=== PATIENT | male | born 1960 | race Caucasian/White ===

== ENCOUNTER 2019-10-03 17:46 | Inpatient (IN) | payer BC, MEDICAID, OTHER ==
[~2019-10-03] VITALS: Ht 180.3 cm; Wt 75.4 kg
[~2019-10-03 17:46] MED LIST: [UNRECOGNIZED DRUG - SUPPLY]
[2019-10-03] MEDS ORDERED: SODIUM CHLORIDE 0.9% 1,000 ML IV ONE (18:56)
[2019-10-03] MEDS ORDERED: CLINDAMYCIN 600MG IV 50 ML IV ONE (19:00)
[2019-10-03 20:28] LABS: Basophils # (auto) 0 10 ^3/uL (0-0.2); Basophils % (auto) 0.5 % (0.0-2.0); Eosinophils # (auto) 0.3 10 ^3/uL (0-0.8); Eosinophils % (auto) 3.8 % (0.0-7.0); Hematocrit 40.2 % (41.0-53.0); Hemoglobin 13.4 g/dL (13.5-17.5); Lymphocytes # (auto) 1.8 10 ^3/uL (0.4-5.4); Lymphocytes % (auto) 20.2 % (10.0-50.0); Mean Corpuscular Hemoglobin 30.9 pg (28.0-32.0); Mean Corpuscular Hgb Conc. 33.3 g/dL (32.0-36.0); Mean Corpuscular Volume 92.5 fL (80.0-100.0); Monocytes # (auto) 0.6 10 ^3/uL (0-1.3); Monocytes % (auto) 6.9 % (0.0-12.0); Neutrophils # (auto) 6.1 10 ^3/uL (1.6-8.6); Neutrophils % (auto) 68.6 % (37.0-80.0); Platelet Count (auto) 175 10^3/uL (140-450); Red Blood Cells 4.35 10^6/uL (4.5-5.90); Red Cell Distribution Width 13.5 % (11.8-14.3); White Blood Cell 8.8 10^3/uL (4.4-10.8)
[2019-10-03 20:45] LABS: Albumin 3.5 g/dL (3.4-5.0); Calcium 8.9 mg/dL (8.5-10.1); Potassium 4.6 mmol/L (3.5-5.1)
[2019-10-03 20:49] LABS: BUN/Creatinine Ratio 14.5; Bilirubin, Total 0.4 mg/dL (0.2-1.0); Total Protein 7.7 g/dL (6.4-8.2)
[2019-10-03] MEDS ORDERED: ONDANSETRON HCL 4 MG/2 ML VIAL IV PRN (23:15)
[2019-10-03] MEDS ORDERED: ACETAMINOPHEN 325 MG TAB PO PRN (23:15)
[2019-10-03] MEDS ORDERED: MORPHINE SULF INJ 2 MG/ML SYRINGE 1ML IV PRN (23:15)
[2019-10-03] MEDS ORDERED: NITROGLYCERIN 0.4 MG SL TAB SL PRN (23:15)
[2019-10-03] MEDS ORDERED: DEXTROSE (50%) 50ML SYRG IV PRN (23:15)
[2019-10-03] MEDS: SODIUM CHLORIDE 0.9% 1,000 ML IV SCH (23:32)
--- NOTE | 2019-10-04 00:15 | NUR ---
MS admit from ER [facility] admitted to tele/MS after NO SBAR WAS received. Patient oriented to JESSICA ware RN, unit, room, bed, and unit policies regarding patient care and visiting hours. Patient weighed by bedscale and encouraged to call if they need something. All questions and concerns addressed, patient verbalized understanding.
[2019-10-04 00:30] VITALS: BP 113/68
[2019-10-04] MEDS: ACCU-CHEK COMFORT CURVE STRIP VI SCH ×4 (00:46→18:02)
[2019-10-04] MEDS: InsuLIN REG 1unit/0.01ml Soln (100units/ml) SC SCH ×4 (00:47→18:01)
[2019-10-04 05:00] VITALS: BP 111/72
[2019-10-04] MEDS: CLINDAMYCIN 900MG IV 50 ML IV SCH ×2 (05:57→13:26)
[2019-10-04 06:02] LABS: Basophils # (auto) 0 10 ^3/uL (0-0.2); Basophils % (auto) 0.4 % (0.0-2.0); Eosinophils # (auto) 0.3 10 ^3/uL (0-0.8); Eosinophils % (auto) 4.7 % (0.0-7.0); Hematocrit 38.1 % (41.0-53.0); Lymphocytes # (auto) 1.9 10 ^3/uL (0.4-5.4); Lymphocytes % (auto) 26.4 % (10.0-50.0); Mean Corpuscular Hemoglobin 31.3 pg (28.0-32.0); Mean Corpuscular Volume 92.1 fL (80.0-100.0); Monocytes # (auto) 0.6 10 ^3/uL (0-1.3); Monocytes % (auto) 7.8 % (0.0-12.0); Neutrophils # (auto) 4.5 10 ^3/uL (1.6-8.6); Neutrophils % (auto) 60.7 % (37.0-80.0); Nucleated Red Blood Cells % 0.1 %; Platelet Count (auto) 159 10^3/uL (140-450); Red Blood Cells 4.14 10^6/uL (4.5-5.90); Red Cell Distribution Width 13.7 % (11.8-14.3); White Blood Cell 7.4 10^3/uL (4.4-10.8)
[2019-10-04 06:25] LABS: Calcium 7.8 mg/dL (8.5-10.1); Potassium 3.7 mmol/L (3.5-5.1)
[2019-10-04 06:35] LABS: BUN/Creatinine Ratio 16.5; CRP High Sensitivity 2.65 mg/dL (< 0.3)
[2019-10-04] MEDS ORDERED: ACCU-CHEK COMFORT CURVE STRIP VI SCH (07:00)
[2019-10-04 08:00] VITALS: BP 114/69
--- NOTE | 2019-10-04 08:30 | NUR ---
Patient signed an AMA to go down/smoke.
[2019-10-04] MEDS ORDERED: LORazepam 2MG/ML-1ML VIAL IV PRN (09:00)
--- NOTE | 2019-10-04 09:50 | NUR ---
ss consult Per ss consult advanced directive information. Ac B[facility]XTON has provided patient with advanced directive. Addendum: 10/04/19 at 0951 by Niurka SALDANA Amended: Links added.
[2019-10-04] MEDS ORDERED: levoFLOXacin 500MG 100 ML IV SCH (10:00)
[2019-10-04] MEDS ORDERED: ENOXAPARIN SOD 40 MG/0.4 ML SYRINGE SC SCH (10:00)
[2019-10-04] MEDS: SODIUM CHLORIDE 0.9% 1,000 ML IV SCH (10:16)
[2019-10-04] MEDS ORDERED: HYDROcodone-ACET 5/325MG TAB PO PRN (12:45)
[2019-10-04] MEDS ORDERED: CLIN300C8 PO (15:36)
[2019-10-04] MEDS ORDERED: LEVO500T21 PO (15:36)
[2019-10-04] MEDS ORDERED: METF-370 PO (15:41)
[2019-10-04] MEDS ORDERED: GLIP5TAB12 PO (15:41)
--- NOTE | 2019-10-04 15:48 | NUR ---
Left a message to Cindy Cabrera regarding result of right foot MRI and right lower extremity arterial study, Dr. Cunningham of podiatry is already aware of the results and will not do any surgical intervention and suggested that patient may be discharged home with antibiotics. Awaiting call from Dr. Jarrell. Will continue care.
--- NOTE | 2019-10-04 16:54 | NUR ---
Assessment Patient is a 59-year-old male who is alert and oriented. Prior to admission patient lived home with his and functioned independently. Per patient he can care for his own ADLs. Per patient he does not have any medical equipment. Per patient he will return home to his prior living arrangements post discharge and his will transport him home. Advised patient there is a social service consult for home health safety evaluation. Informed patient clinical information will be faxed to [facility]. Informed patient he has the right to speak to a psychiatric social worker supervisor regarding all care. Informed patient he has the right to participate in all discharge planning. Patient verbalized understanding and agreed to discharge plan. Faxed clinical information to [facility] and [facility]. Per Lisandra with [facility] patient has been accepted and service to start within 24-48hrs upon d/c day. Obtain authorization from [facility] [id number]. Addendum: 10/04/19 at 1704 by SEBLE SALDANA Amended: Links added.
[2019-10-04 17:00] VITALS: BP 101/64
--- NOTE | 2019-10-04 18:10 | NUR ---
Orders received from Dr. Cindy Jarrell, patient is for discharge today. Patient made aware, is going to pick him up. Will process the discharge papers. Continue care.
[2019-10-04 18:45] VITALS: BP 101/64
--- NOTE | 2019-10-04 19:15 | NUR ---
Discharge instructions given as ordered. Encourage to follow up with PMD Ritika Gustafson in 3-[address] Cunningham in 2-3 weeks as instructed. Patient advised to drop by [facility] to get new prescriptions sent electronically by Dr. Cindy Jarrell. All questions and concerns addressed. Patient verbalized understanding. Medication reconciliation form completed and copy given to patient. Home medications held in Pharmacy returned to patient, and needed vaccines given. IV removed with catheter intact, pressure dressing applied. Patient ambulated with all personal belongings, accompanied by staff and family member. No distress noted at time of departure.
== END 2019-10-04 19:15 | disposition home health service (06) | DRG 383 ==
LOC: ER 17:46 → TELE-CENTR 23:57 → WEST WING 23:58
PROVIDERS: ADMIT Hospitalist; ATTEND Hospitalist
DX: L03.115 Cellulitis of right lower limb (principal); E11.65 Type 2 diabetes mellitus with hyperglycemia; I11.0 Hypertensive heart disease with heart failure; I25.10 Atherosclerotic heart disease of native coronary artery without angina pectoris; I50.9 Heart failure, unspecified; Z82.49 Family history of ischemic heart disease and other diseases of the circulatory system; Z83.3 Family history of diabetes mellitus; Z87.11 Personal history of peptic ulcer disease
CPT/HCPCS: 36415; 73630; 73700; 73718; 80048; 80053; 82962; 83036; 85025; 85652; 86141; 87040; 93926; 96365; G0378; J1815; J1956; J3490

== ENCOUNTER 2019-10-26 10:35 | Emergency (ER) | payer MEDICAID ==
[~2019-10-26] VITALS: Ht 180.3 cm; Wt 83.9 kg
[~2019-10-26 10:35] MED LIST changes: +CLIN300C8 PO; +GLIP5TAB12 PO; +LEVO500T21 PO; +METF-370 PO; -[UNRECOGNIZED DRUG - SUPPLY]
[2019-10-26 10:45] VITALS: BP 122/74
== END 2019-10-26 11:33 | disposition home or self-care (01) ==
LOC: ER 10:35
DX: Z48.00 Encounter for change or removal of nonsurgical wound dressing (principal)

== ENCOUNTER 2019-11-02 16:08 | Inpatient (IN) | payer MEDICAID ==
[~2019-11-02] VITALS: Ht 182.9 cm; Wt 73.3 kg
[2019-11-02 19:13] LABS: Basophils # (auto) 0 10 ^3/uL (0-0.2); Basophils % (auto) 0.5 % (0.0-2.0); Eosinophils # (auto) 0.4 10 ^3/uL (0-0.8); Eosinophils % (auto) 5.2 % (0.0-7.0); Hematocrit 40.7 % (41.0-53.0); Lymphocytes # (auto) 1.8 10 ^3/uL (0.4-5.4); Lymphocytes % (auto) 23.8 % (10.0-50.0); Mean Corpuscular Hemoglobin 31.4 pg (28.0-32.0); Mean Corpuscular Hgb Conc. 34.4 g/dL (32.0-36.0); Mean Corpuscular Volume 91.3 fL (80.0-100.0); Monocytes # (auto) 0.5 10 ^3/uL (0-1.3); Monocytes % (auto) 6.6 % (0.0-12.0); Neutrophils # (auto) 4.8 10 ^3/uL (1.6-8.6); Neutrophils % (auto) 63.9 % (37.0-80.0); Nucleated Red Blood Cells % 0.1 %; Platelet Count (auto) 163 10^3/uL (140-450); Red Blood Cells 4.46 10^6/uL (4.5-5.90); Red Cell Distribution Width 13.1 % (11.8-14.3); White Blood Cell 7.6 10^3/uL (4.4-10.8)
[2019-11-02 20:04] LABS: Potassium 4.2 mmol/L (3.5-5.1)
[2019-11-02 20:10] LABS: Albumin 3.7 g/dL (3.4-5.0); BUN/Creatinine Ratio 17.1; Bilirubin, Total 0.7 mg/dL (0.2-1.0)
[2019-11-02 20:16] LABS: Magnesium 1.9 mg/dL (1.6-2.6)
[2019-11-02] MEDS ORDERED: SODIUM CHLORIDE 0.9% 1,000 ML IVB ONE (21:47)
[2019-11-02] MEDS ORDERED: InsuLIN REG 1unit/0.01ml Soln (100units/ml) IV ONE (22:00)
[2019-11-03] MEDS ORDERED: ACETAMINOPHEN 325 MG TAB PO PRN (03:00)
[2019-11-03] MEDS ORDERED: MORPHINE SULF INJ 2 MG/ML SYRINGE 1ML IV PRN (03:00)
[2019-11-03] MEDS ORDERED: ONDANSETRON HCL 4 MG/2 ML VIAL IV PRN (03:00)
[2019-11-03] MEDS ORDERED: NITROGLYCERIN 0.4 MG SL TAB SL PRN (03:00)
[2019-11-03] MEDS ORDERED: MORPHINE SULFATE 4 MG/ML SYR/VIAL IV PRN (03:00)
[2019-11-03] MEDS ORDERED: DEXTROSE (50%) 50ML SYRG IV PRN (03:00)
[2019-11-03 03:30] LABS: Basophils # (auto) 0 10 ^3/uL (0-0.2); Basophils % (auto) 0.3 % (0.0-2.0); Eosinophils # (auto) 0.4 10 ^3/uL (0-0.8); Eosinophils % (auto) 4.3 % (0.0-7.0); Hematocrit 41.7 % (41.0-53.0); Hemoglobin 14.3 g/dL (13.5-17.5); Lymphocytes # (auto) 2.2 10 ^3/uL (0.4-5.4); Lymphocytes % (auto) 24.4 % (10.0-50.0); Mean Corpuscular Hemoglobin 31.5 pg (28.0-32.0); Mean Corpuscular Hgb Conc. 34.3 g/dL (32.0-36.0); Mean Corpuscular Volume 91.9 fL (80.0-100.0); Monocytes # (auto) 0.7 10 ^3/uL (0-1.3); Monocytes % (auto) 7.3 % (0.0-12.0); Neutrophils # (auto) 5.7 10 ^3/uL (1.6-8.6); Neutrophils % (auto) 63.7 % (37.0-80.0); Platelet Count (auto) 170 10^3/uL (140-450); Red Blood Cells 4.54 10^6/uL (4.5-5.90); Red Cell Distribution Width 13.1 % (11.8-14.3); White Blood Cell 8.9 10^3/uL (4.4-10.8)
[2019-11-03] MEDS: SODIUM CHLORIDE 0.9% 1,000 ML IV SCH ×3 (03:33→23:15)
[2019-11-03 04:17] LABS: Albumin 3.7 g/dL (3.4-5.0); Calcium 9.2 mg/dL (8.5-10.1); Magnesium 2.4 mg/dL (1.6-2.6); Potassium 4.6 mmol/L (3.5-5.1)
[2019-11-03 04:20] LABS: BUN/Creatinine Ratio 17.9; Bilirubin, Total 0.5 mg/dL (0.2-1.0); Phosphorus 2.8 mg/dL (2.5-4.90); Total Protein 7.7 g/dL (6.4-8.2)
--- NOTE | 2019-11-03 05:05 | NUR ---
Telemetry admit from [facility] admitted to Telemetry unit; no SBAR received. Patient oriented by TIERRA DOUGHERTY, primary RN, to unit, room, bed, and unit policies regarding patient care and visiting hours and smoking. Patient signed AMA to be able to go smoke. Patient now on continuous telemetry monitoring, tele box #51 and telemetry reading on arrival to unit is SR 71. Patient on room air, weighed by bedscale and encouraged to call if he needs something. All questions and concerns addressed, patient verbalized understanding stating he will be going home later this a.m. Bed in low position. Call light within reach.
[2019-11-03] MEDS: InsuLIN REG 1unit/0.01ml Soln (100units/ml) SC SCH ×4 (05:51→22:00)
[2019-11-03] MEDS: ACCU-CHEK COMFORT CURVE STRIP VI SCH ×4 (05:52→22:00)
[2019-11-03 06:00] VITALS: BP 110/72
[2019-11-03 06:01] VITALS: BP 110/72
[2019-11-03 08:48] VITALS: BP 111/70
[2019-11-03 12:16] LABS: INR 1.04 (0.9-1.15); Partial Thromboplastin Time 25.3 sec (23.0-31.2)
[2019-11-03] MEDS: HEPARIN SODIUM (PORCINE) 5000 UNITS/ML 1ML VIAL SC SCH ×2 (12:24→23:00)
[2019-11-03 13:00] VITALS: BP 107/68
[2019-11-03 17:00] VITALS: BP 93/47
[2019-11-03 22:00] VITALS: BP 120/73
[2019-11-03] MEDS ORDERED: INSULIN LANTUS (GLARGINE) 1 /0.01ml (100units/ml) SC SCH (22:00)
[2019-11-04 05:00] VITALS: BP 107/63
[2019-11-04 06:40] LABS: Potassium 4.2 mmol/L (3.5-5.1)
[2019-11-04 06:50] LABS: Albumin 3.1 g/dL (3.4-5.0); BUN/Creatinine Ratio 15.6; Bilirubin, Total 0.8 mg/dL (0.2-1.0); Calcium 8.5 mg/dL (8.5-10.1); Total Protein 7.2 g/dL (6.4-8.2)
[2019-11-04] MEDS: InsuLIN REG 1unit/0.01ml Soln (100units/ml) SC SCH ×2 (07:00→12:13)
[2019-11-04] MEDS: ACCU-CHEK COMFORT CURVE STRIP VI SCH ×2 (07:00→12:12)
--- NOTE | 2019-11-04 07:03 | NUR ---
Opening Shift Note Assumed care of patient, awake and alert. No S/S of distress/SOB or pain. Instructed on POC and to call for assist PRN, will continue to monitor for changes Q1hr and PRN. Bed locked in the lowest position, side rails up x 2, HOB elevated at least 30 degrees and call light is within reach.
[2019-11-04 08:00] VITALS: BP 104/69
[2019-11-04 09:00] VITALS: BP 104/69
[2019-11-04] MEDS: SODIUM CHLORIDE 0.9% 1,000 ML IV SCH (09:15)
[2019-11-04 13:00] VITALS: BP 101/65
--- NOTE | 2019-11-04 16:20 | NUR ---
Discharge instructions given as ordered. Encourage to follow up with PMD as instructed. All questions and concerns addressed. Patient verbalized understanding. Home medications held in Pharmacy returned to patient, and needed vaccines given. IV removed with catheter intact, pressure dressing applied. Telemetry unit returned to ICU. Patient ambulated independently to family member's vehicle. No distress noted at time of departure.
== END 2019-11-04 16:20 | disposition home or self-care (01) | DRG 420 ==
LOC: ER 16:08 → TELE 16:09 → TELE-WESTW 11-03 05:05
PROVIDERS: ADMIT Internal Medicine; ATTEND Internal Medicine
DX: E11.65 Type 2 diabetes mellitus with hyperglycemia (principal); N17.0 Acute kidney failure with tubular necrosis; I10 Essential (primary) hypertension; F17.210 Nicotine dependence, cigarettes, uncomplicated; R74.0 Nonspecific elevation of levels of transaminase and lactic acid dehydrogenase [LDH]; Z87.11 Personal history of peptic ulcer disease; Z79.4 Long term (current) use of insulin; Z90.49 Acquired absence of other specified parts of digestive tract; Z98.61 Coronary angioplasty status
CPT/HCPCS: 36415; 71045; 80053; 82962; 83036; 83690; 83735; 83880; 84100; 84484; 85025; 85610; 85730; G0378; J1815

== ENCOUNTER 2023-09-21 17:35 | Emergency (ER) | payer MEDICAID ==
[~2023-09-21] VITALS: Ht 182.9 cm; Wt 61.9 kg
[2023-09-21 18:25] VITALS: BP 99/66; PULSE 99; RESP 18; O2SAT 98
[2023-09-21] MEDS ORDERED: HYDROcodone-ACET 10/325MG TAB PO ONE (19:15)
[2023-09-21 19:21] LABS: Basophils # (auto) 0 10 ^3/uL (0-0.2); Basophils % (auto) 0.4 % (0.0-2.0); Eosinophils # (auto) 0.2 10 ^3/uL (0-0.8); Eosinophils % (auto) 2.1 % (0.0-7.0); Hematocrit 39.6 % (41.0-53.0); Hemoglobin 13.3 g/dL (13.5-17.5); Lymphocytes # (auto) 1.4 10 ^3/uL (0.4-5.4); Lymphocytes % (auto) 17.7 % (10.0-50.0); Mean Corpuscular Hemoglobin 30.6 pg (28.0-32.0); Mean Corpuscular Hgb Conc. 33.6 g/dL (32.0-36.0); Mean Corpuscular Volume 91.1 fL (80.0-100.0); Monocytes # (auto) 0.5 10 ^3/uL (0-1.3); Monocytes % (auto) 6.5 % (0.0-12.0); Neutrophils # (auto) 5.6 10 ^3/uL (1.6-8.6); Neutrophils % (auto) 73.3 % (37.0-80.0); Red Blood Cells 4.35 10^6/uL (4.5-5.90); Red Cell Distribution Width 12.9 % (11.8-14.3); White Blood Cell 7.6 10^3/uL (4.4-10.8)
[2023-09-21 19:39] LABS: Alanine Aminotransferase 68 U/L (7-40); Albumin 4.1 g/dL (3.2-4.8); Alkaline Phosphatase 90 U/L (46-116); Anion Gap 5 (5-15); Aspartate Aminotransferase 51 U/L (13-40); BUN/Creatinine Ratio 14.5 (10.0-20.0); Blood Urea Nitrogen 22 mg/dL (9-23); Calcium 9.9 mg/dL (8.7-10.4); Carbon Dioxide 30 mmol/L (20-30); Chloride 89 mmol/L (98-107); Potassium 4.7 mmol/L (3.5-5.1); Sodium 124 mmol/L (136-145)
[2023-09-21 19:40] LABS: Bilirubin, Total 1.1 mg/dL (0.2-1.0); Total Protein 7.8 g/dL (5.7-8.2)
[2023-09-21 19:54] LABS: Glucose 644 mg/dL (74-106)
[2023-09-21] MEDS ORDERED: InsuLIN REG 1unit/0.01ml Soln (100units/ml) IV ONE (21:30)
[2023-09-21] MEDS ORDERED: SODIUM CHLORIDE 0.9% 1,000 ML IV ONE (21:30)
== END 2023-09-21 21:52 | disposition left against medical advice (07) ==
LOC: ER 17:35
DX: S83.8X2A Sprain of other specified parts of left knee, initial encounter (principal); E11.65 Type 2 diabetes mellitus with hyperglycemia; I10 Essential (primary) hypertension; F17.210 Nicotine dependence, cigarettes, uncomplicated; Z98.890 Other specified postprocedural states; W01.0XXA Fall on same level from slipping, tripping and stumbling without subsequent striking against object, initial encounter; Y93.89 Activity, other specified; Y92.89 Other specified places as the place of occurrence of the external cause; Y99.8 Other external cause status
CPT/HCPCS: 36415; 73562; 80053; 82010; 82962; 83605; 85025

== ENCOUNTER 2024-03-30 16:45 | Inpatient (IN) | payer MEDICAID ==
[~2024-03-30] VITALS: Ht 180.3 cm; Wt 57.5 kg
[2024-03-30] MEDS ORDERED: INSULIN LISPRO (HUMAN) 100 UNITS/ML ML SC ONE (17:00)
[2024-03-30 17:10] VITALS: PULSE 102; RESP 16; O2SAT 97
[2024-03-30] MEDS: SODIUM CHLORIDE 0.9% 2,000 ML IV ONE (17:26)
--- NOTE | 2024-03-30 17:31 | DVH ---
CHEST RADIOGRAPH Indication: Shortness of breath Technique: Single frontal view of the chest was obtained COMPARISON: CHEST PORTABLE on DOS: 11/03/19 FINDINGS: Lines and Tubes: None Lungs: Clear Pleura: No effusion. No pneumothorax. Cardiomediastinal contours: Unremarkable Bones: Unremarkable IMPRESSION: No acute disease.
[2024-03-30 17:59] LABS: Base Excess 3.3 mmol/L (-2.0-3.0)
[2024-03-30] MEDS: InsuLIN REG 1unit/0.01ml Soln (100units/ml) IV ONE (18:00)
[2024-03-30 18:48] LABS: Basophils # (auto) 0 10 ^3/uL (0-0.2); Basophils % (auto) 0.3 % (0.0-2.0); Eosinophils # (auto) 0.1 10 ^3/uL (0-0.8); Hematocrit 39.7 % (41.0-53.0); Hemoglobin 12.8 g/dL (13.5-17.5); Lymphocytes # (auto) 1.8 10 ^3/uL (0.4-5.4); Lymphocytes % (auto) 15.8 % (10.0-50.0); Mean Corpuscular Hemoglobin 28.6 pg (28.0-32.0); Mean Corpuscular Hgb Conc. 32.1 g/dL (32.0-36.0); Mean Corpuscular Volume 88.9 fL (80.0-100.0); Monocytes # (auto) 0.7 10 ^3/uL (0-1.3); Monocytes % (auto) 6.2 % (0.0-12.0); Neutrophils # (auto) 8.8 10 ^3/uL (1.6-8.6); Neutrophils % (auto) 76.7 % (37.0-80.0); Platelet Count (auto) 318 10^3/uL (140-450); Red Blood Cells 4.47 10^6/uL (4.5-5.90); Red Cell Distribution Width 13.2 % (11.8-14.3); White Blood Cell 11.5 10^3/uL (4.4-10.8)
[2024-03-30 18:55] LABS: Anion Gap 5 (5-15); Potassium 4.6 mmol/L (3.5-5.1)
[2024-03-30 18:56] LABS: Calcium 10.2 mg/dL (8.7-10.4)
[2024-03-30 19:01] LABS: BUN/Creatinine Ratio 19.5 (10.0-20.0)
[2024-03-30 19:08] LABS: Blood Urea Nitrogen 26 mg/dL (9-23); Carbon Dioxide 34 mmol/L (20-31); Chloride 88 mmol/L (98-107); Sodium 127 mmol/L (136-145)
[2024-03-30 19:11] LABS: Glucose 565 mg/dL (74-106)
--- NOTE | 2024-03-30 20:49 | ED.PDOC ---
History of present illness HPI Comments This patient is a 63-year-old noncompliant diabetic who arrives the ED today after being referred from an urgent care facility due to elevated blood sugar. Patient states that at the clinic his blood sugar was "hi". Patient states he originally went to the facility due to blood sugar concerns and generalized weakness for the past two days. Patient states intermittent nausea. Patient denies any fever. Patient has a mild elevated temperature and a mild tachycardia at arrival. Chief Complaint: Hyperglycemia Time Seen by MD: 16:47 Primary Care Provider: pt does not know History of present illness: Nurses Notes Allergies: Coded Allergies: NO KNOWN ALLERGIES (Unverified , 01/28/10) Home Meds No Active Prescriptions or Reported Meds Information Source: Patient Mode of Arrival: Wheelchair Timing: Days Duration: Since onset Prehospital treatment: None [place]: None History of: Diabetes, Insulin use Past Medical History PAST MEDICAL HISTORY: DM, HTN, PUD Surgical History: Appendectomy, PTCA Family History Family History: No family hx of HTN, Family hx of DM, Family hx of HTN Social History Smoker: Cigarettes, Less Than 1 Pack/Day Alcohol: Rarely Drugs: Denies Drug Use Lives In: Home Constitutional: reports: fatigue, weakness; denies: chills, diaphoresis, fever, malaise, sweats, others EENTM: denies: blurred vision, double vision, ear bleeding, ear discharge, ear drainage, ear pain, ear ringing, eye pain, eye redness, hearing loss, mouth pain, mouth swelling, nasal discharge, nose bleeding, nose congestion, nose pain , photophobia, tearing, throat pain, throat swelling, voice changes, others Respiratory: denies: cough, hemoptysis, orthopnea, SOB at rest, shortness of breath, SOB with excertion, stridor, wheezing, others Cardiovascular: denies: chest pain, dizzy spells, diaphoresis, Dyspnea on exertion, edema, irregular heart beat, left arm pain, lightheadedness, palpitations, PND, syncope, others Gastrointestinal: denies: abdomen distended, abdominal pain, blood streaked bowels, constipated, diarrhea, dysphagia, difficulty swallowing, hematemesis, melena, nausea, poor appetite, poor fluid intake, rectal bleeding, rectal pain, vomiting, others Genitourinary: denies: burning, dysuria, flank pain, frequency, hematuria, incontinence, penile discharge, penile sore, pain, testicle pain, testicle swelling, urgency, others Neurological: denies: dizziness, fainting, headache, left sided numbness, left sided weakness, numbness, paresthesia, pre-existing deficit, right sided numbness, right sided weakness, seizure, speech problems, tingling, tremors, weakness, others Musculoskeletal: denies: back pain, gout, joint pain, joint swelling, muscle pain, muscle stiffness, neck pain, others Integumetry: denies: bruises, change in color, change in hair/nails, dryness, laceration, lesions, lumps, rash, wounds, others Allergic/Immunocompromised: denies: Difficulty Healing, Frequent Infections, Hives, Itching, others Hematologic/Lymphatic: denies: anemia, blood clots, easy bleeding, easy bruising, swollen glands, others Endocrine: denies: excessive hunger, excessive sweating, excessive thirst, excessive urination, flushing, intolerance to cold, intolerance to heat, unexplained weight gain, unexplained weight loss, others Psychiatric: denies: anxiety, bipolar disorder, depression, hopeless, panic disorder, schizophrenia, sleepless, suicidal, others Physical Exam General Appearance: Moderate Distress (Patient was in [id number] distress due to generalized weakness and fatigue concerns. Patient appears to be in poor overall health.), Normal HEENT: Normal ENT Inspection, Pharynx Normal, TMs Normal Neck: Full Range of Motion, Non-Tender, Normal, Normal Inspection Respiratory: Chest Non-Tender, Lungs Clear, No Accessory Muscle Use, No Respiratory Distress, Normal Breath Sounds Cardiovascular: No Edema, No JVD, No Murmur, No Gallop, Normal Peripheral Pulses, Regular Rate/Rhythm Breast Exam: Deferred Gastrointestinal: No Organomegaly, Non Tender, No Pulsatile Mass, Normal Bowel Sounds, Soft Genitalia: Deferred Pelvic: Deferred Rectal: Deferred Extremities: No calf tenderness, Normal capillary refill, Normal inspection, Normal range of motion, Non-tender, No pedal edema Neurologic: Alert, No Motor Deficits, Normal Affect, Normal Mood, No Sensory Deficits Cerebellar Function: Normal Reflexes: Normal Skin: Dry, Normal Color, Warm Lymphatic: No Adenopathy Was a procedure done? Was a procedure done?: No Differential Diagnosis (DM) Differential Diagnosis: DKA, Other (Hyperglycemia, electrolyte abnormality, sepsis) X-Ray, Labs, Meds, VS Vital Signs Date Time Temp Pulse Resp B/P (MAP) Pulse Ox O2 Delivery O2 Flow Rate FiO2 03/30/24 17:10 102 16 97 Room Air* 0 21 03/30/24 17:10 97.8 102 16 109/69 (82) 98 97.8 03/30/24 16:56 100.0 102 17 100/78 (85) 98 Lab Test 03/30/24 18:56 03/30/24 17:50 03/30/24 17:28 03/30/24 17:14 Range/Units Troponin I High Sensitivity < 3 L < 3 L </=54 ng/L White Blood Count 11.5 H 4.4-10.8 10^3/uL Red Blood Count 4.47 L 4.5-5.90 10^6/uL Hemoglobin 12.8 L 13.5-17.5 g/dL Hematocrit 39.7 L 41.0-53.0 % Mean Corpuscular Volume 88.9 80.0-100.0 fL Mean Corpuscular Hemoglobin 28.6 28.0-32.0 pg Mean Corpuscular Hemoglobin Concent 32.1 32.0-36.0 g/dL Red Cell Distribution Width 13.2 11.8-14.3 % Platelet Count 318 140-450 10^3/uL Mean Platelet Volume 8.3 6.9-10.8 fL Neutrophils (%) (Auto) 76.7 37.0-80.0 % Lymphocytes (%) (Auto) 15.8 10.0-50.0 % Monocytes (%) (Auto) 6.2 0.0-12.0 % Eosinophils (%) (Auto) 1.0 0.0-7.0 % Basophils (%) (Auto) 0.3 0.0-2.0 % Neutrophils # (Auto) 8.8 H 1.6-8.6 10 ^3/uL Lymphocytes # (Auto) 1.8 0.4-5.4 10 ^3/uL Monocytes # (Auto) 0.7 0-1.3 10 ^3/uL Eosinophils # (Auto) 0.1 0-0.8 10 ^3/uL Basophils # (Auto) 0 0-0.2 10 ^3/uL Nucleated Red Blood Cells 0.0 % Sodium Level 127 L 136-145 mmol/L Potassium Level 4.6 3.5-5.1 mmol/L Chloride Level 88 L 98-107 mmol/L Carbon Dioxide Level 34 H 20-31 mmol/L Anion Gap 5 5-15 Blood Urea Nitrogen 26 H 9-23 mg/dL Creatinine 1.33 H 0.700-1.30 mg/dL Glomerular Filtration Rate Calc 61 >90 mL/min BUN/Creatinine Ratio 19.5 10.0-20.0 Serum Glucose 565 *H 74-106 mg/dL Lactic Acid Level 1.4 0.4-2.0 mmol/L Calcium Level 10.2 8.7-10.4 mg/dL B-Type Natriuretic Peptide 14.34 0-100 pg/mL Beta-Hydroxybutyric Acid 0.212 < 0.4 mmol/L Blood Gas Specimen Type Arterial Blood Gas Sample Site Right radial Blood Gas Patient Temperature 37.0 Arterial Blood Date Drawn [id number] Arterial Blood pH 7.474 H 7.350-7.450 Arterial Blood Partial Pressure CO2 37.5 35.0-48.0 mmHg Arterial Blood Partial Pressure O2 70.1 L 83.0-108.0 mmHg Arterial Blood HCO3 26.9 21.0-28.0 mmol/L Arterial Blood Oxygen Saturation 93.6 L 94.0-98.0 % Arterial Blood Base Excess 3.3 H -2.0-3.0 mmol/L Arterial Blood Oxyhemoglobin 91.8 L 94.0-98.0 % Arterial Blood Carboxyhemoglobin 1.7 H 0.5-1.5 % Arterial Blood Methemoglobin 0.2 0.0-1.5 % Rodolfo Test Yes Blood Gas Total Hemoglobin 13.60 13.5-17.5 g/dL Blood Gas Modality Room air Blood Gas Spontaneous Rate 22 FiO2 % 21.0 POC Glucose 583 *H 70-106 mg/dl Test 03/30/24 17:12 03/30/24 16:51 Range/Units POC Glucose 576 *H 599 *H 70-106 mg/dl Current Medications Medications (Trade) Dose Ordered Sig/Favio Route Start Time Stop Time Status Last Admin Sodium Chloride 2,000 ml @ 1,000 mls/hr Q2H ONCE IV 03/30/24 17:00 03/30/24 18:59 DC 03/30/24 17:26 Insulin Human Regular (InsuLIN R) 18 units ONCE ONCE IV 03/30/24 17:45 03/30/24 17:46 DC 03/30/24 18:00 X-Ray, Labs, Meds, VS Comment All studies performed the ED were evaluated by me personally. Patient's blood sugar was greater than 500 as well as displays signs of what may be acute on chronic renal concerns. Patient was also hyponatremia. Patient will be admitted for blood sugar management as well as electrolyte management and nephrology consult to deal with what appears to be developing kidney concerns. Time of 1ST Reevaluation: 20:49 Reevaluation 1ST: Improved Consultation: PCP Patient Education/Counseling: Diagnosis, Treatment Family Education/Counseling: Diagnosis, Treatment Departure 1 Departure Time of Disposition: 20:50 Impression: Primary Impression: Hyperglycemia due to diabetes mellitus Additional Impressions: Dmlqg-qz-oyjulhj kidney injury Hyponatremia Disposition: ADMITTED INPATIENT Condition: Stable e-Prescriptions No Active Prescriptions or Reported Meds Discharged With: Self Critical Care Note Critical Care Time?: No Stability Stability form required: No Heart Score Heart Score: Heart Score Response (Comments) Value History Slightly Suspicious 0 EKG Repolarization Disturb 1 Age 45-64 1 Risk Factors 1 or 2 risk factors 1 Troponin Normal limit 0 Total 3 KEYUR TSANG PAC Mar 30, 2024 20:49
[2024-03-30] MEDS ORDERED: ONDANSETRON HCL 4 MG/2 ML VIAL IV PRN (21:15)
[2024-03-30] MEDS ORDERED: DEXTROSE (50%) 50ML SYRG IV PRN (21:15)
[2024-03-30] MEDS ORDERED: ACETAMINOPHEN 325 MG TAB PO PRN (21:15)
[2024-03-30] MEDS: SODIUM CHLORIDE 0.9% 1,000 ML IV SCH (21:15)
--- NOTE | 2024-03-30 21:43 | DVHHP2 ---
History of Present Illness Reason for Visit: Diabetes mellitus with hyperglycemia History of Present Illness The patient is a 63-year-old male with past medical history of PUD, hypertension, and diabetes mellitus who presented to [facility] ED with complaint of elevated blood sugar. Patient reports he has been having elevated blood sugar, generalized weakness for the past 2 days, went to clinic and his blood sugar was reading high, intermittent nausea. Patient was seen and evaluated in the ED, laboratory data shows WBC 11.5, platelets 318, sodium 127, potassium 4.6, BUN 26, creatinine 1.33, GFR 61, glucose 565, anion gap 5, troponin < 3. Chest x-ray show no acute disease. Patient was given IV fluid normal saline, started on aggressive Accu-Chek Q 4 hours, please see medication orders section in the computer. On my assessment, patient denied chest pain, no headache, no dizziness, no blurry vision, no nausea, no vomiting, no fever, no chills. Patient was admitted for further evaluation and medical management. Past Medical History DM, HTN, PUD Past Surgical History Appendectomy, PTCA Family History Reviewed, noncontributory to the management of this case. Past Social History Patient lives at home, smokes cigarettes less than 1 pack per day, drinks alcohol rarely, denies illicit drugs abuse. Review of Systems Constitutional: Yes: Weakness; No: Fever, Chills, Sweats, Malaise, Other Eyes: No: Pain, Vision change, Conjunctivae inflammation, Eyelid inflammation, Other, Redness ENT: No: Ear pain, Ear discharge, Nose pain, Nose discharge, Nose congestion, Mouth pain, Mouth swelling, Throat pain, Throat swelling, Other Respiratory: No: Cough, Dry, Shortness of breath, SOB with excertion, Wheezing, Hemoptysis, Pleuritic Pain, Sputum, Wheezing, Other Cardiovascular: No: Chest Pain, Palpitations, Orthopnea, Paroxysmal Noc. Dyspnea, Edema, Lt Headedness, Other Gastrointestinal: Nausea; No: Vomiting, Abdominal Pain, Diarrhea, Constipation, Melena, Hematochezia, Other Genitourinary: No Dysuria, No Frequency, No Incontinence, No Hematuria, No Retention, No Other Musculoskeletal: No: other, neck pain, shoulder pain, arm pain, back pain, hand pain, leg pain, foot pain Skin: No: Rash, Lesions, Jaundice, Bruising, Other Neurological: No: Weakness, Numbness, Incoordination, Change in speech, Confusion, Seizures, Other Allergies: Coded Allergies: NO KNOWN ALLERGIES (Unverified , 01/28/10) Medications Current Medications Medications Dose Ordered Sig/Favio Route Start Time Stop Time Status Last Admin Dose Admin Aspirin 81 mg DAILY PO 03/31/24 10:00 Atorvastatin Calcium 20 mg HS PO 03/30/24 22:00 Famotidine 20 mg DAILY IV 03/31/24 10:00 Diagnostic Test (Pha) 1 strip IQ4HR 03/31/24 00:00 Insulin Human Regular IQ4HR SC 03/31/24 00:00 Dextrose 50 ml UD PRN IV 03/30/24 21:15 Sodium Chloride 1,000 ml @ 120 mls/hr Q8H20M IV 03/30/24 21:15 Acetaminophen/ Hydrocodone Bitart 1 tab Q4HP PRN PO 03/30/24 21:15 Ondansetron HCl 4 mg Q4HP PRN IV 03/30/24 21:15 Docusate Sodium 100 mg BIDPRN PRN PO 03/30/24 21:15 Acetaminophen 650 mg Q6HP PRN PO 03/30/24 21:15 Exam Vital Signs Vital Signs Date Time Temp Pulse Resp B/P (MAP) Pulse Ox O2 Delivery O2 Flow Rate FiO2 03/30/24 17:10 102 16 97 Room Air* 0 21 03/30/24 17:10 97.8 109/69 (82) 97.8 General Appearance: Alert, Oriented X3, Cooperative, No acute distress HEENT: Atraumatic, PERRLA, EOMI, Mucous membr. moist/pink Respiratory: Clear to auscultation, Normal air movement Cardiovascular: Regular rate, Normal S1, Normal S2, No murmurs Abdominal: Normal bowel sounds, Soft, No tenderness, No hepatospenomegaly, No masses Extremities: No clubbing, No cyanosis, No edema, Normal pulses, No tenderness/swelling Skin: No rashes, No breakdown, No significant lesion Neuro: Normal speech, Normal tone, Sensation intact, Cranial nerves 3-12 NL, Reflexes 2+, Other (Generalized weakness) Psych/Mental Status: Mental status NL, Mood NL Labs/Xrays Labs Test 03/30/24 18:56 03/30/24 17:50 03/30/24 17:28 03/30/24 17:14 Range/Units Troponin I High Sensitivity < 3 L </=54 ng/L White Blood Count 11.5 H 4.4-10.8 10^3/uL Red Blood Count 4.47 L 4.5-5.90 10^6/uL Hemoglobin 12.8 L 13.5-17.5 g/dL Hematocrit 39.7 L 41.0-53.0 % Mean Corpuscular Volume 88.9 80.0-100.0 fL Mean Corpuscular Hemoglobin 28.6 28.0-32.0 pg Mean Corpuscular Hemoglobin Concent 32.1 32.0-36.0 g/dL Red Cell Distribution Width 13.2 11.8-14.3 % Platelet Count 318 140-450 10^3/uL Mean Platelet Volume 8.3 6.9-10.8 fL Neutrophils (%) (Auto) 76.7 37.0-80.0 % Lymphocytes (%) (Auto) 15.8 10.0-50.0 % Monocytes (%) (Auto) 6.2 0.0-12.0 % Eosinophils (%) (Auto) 1.0 0.0-7.0 % Basophils (%) (Auto) 0.3 0.0-2.0 % Neutrophils # (Auto) 8.8 H 1.6-8.6 10 ^3/uL Lymphocytes # (Auto) 1.8 0.4-5.4 10 ^3/uL Monocytes # (Auto) 0.7 0-1.3 10 ^3/uL Eosinophils # (Auto) 0.1 0-0.8 10 ^3/uL Basophils # (Auto) 0 0-0.2 10 ^3/uL Nucleated Red Blood Cells 0.0 % Sodium Level 127 L 136-145 mmol/L Potassium Level 4.6 3.5-5.1 mmol/L Chloride Level 88 L 98-107 mmol/L Carbon Dioxide Level 34 H 20-31 mmol/L Anion Gap 5 5-15 Blood Urea Nitrogen 26 H 9-23 mg/dL Creatinine 1.33 H 0.700-1.30 mg/dL Glomerular Filtration Rate Calc 61 >90 mL/min BUN/Creatinine Ratio 19.5 10.0-20.0 Serum Glucose 565 *H 74-106 mg/dL Lactic Acid Level 1.4 0.4-2.0 mmol/L Calcium Level 10.2 8.7-10.4 mg/dL B-Type Natriuretic Peptide 14.34 0-100 pg/mL Beta-Hydroxybutyric Acid 0.212 < 0.4 mmol/L Blood Gas Specimen Type Arterial Blood Gas Sample Site Right radial Blood Gas Patient Temperature 37.0 Arterial Blood Date Drawn [id number] Arterial Blood pH 7.474 H 7.350-7.450 Arterial Blood Partial Pressure CO2 37.5 35.0-48.0 mmHg Arterial Blood Partial Pressure O2 70.1 L 83.0-108.0 mmHg Arterial Blood HCO3 26.9 21.0-28.0 mmol/L Arterial Blood Oxygen Saturation 93.6 L 94.0-98.0 % Arterial Blood Base Excess 3.3 H -2.0-3.0 mmol/L Arterial Blood Oxyhemoglobin 91.8 L 94.0-98.0 % Arterial Blood Carboxyhemoglobin 1.7 H 0.5-1.5 % Arterial Blood Methemoglobin 0.2 0.0-1.5 % Rodolfo Test Yes Blood Gas Total Hemoglobin 13.60 13.5-17.5 g/dL Blood Gas Modality Room air Blood Gas Spontaneous Rate 22 FiO2 % 21.0 POC Glucose 583 *H 70-106 mg/dl PATIENT: LIT SÁNCHEZ ACCT: [id number] UNIT: [id number] : 1960 LOC: ER ROOM / BED: / AGE / SEX: 63 / M ADM STATUS: REG ER SERVICE [id number] ORDERING PHYSICIAN: KEYUR TSANG PAC PROCEDURE(s): CXRP - CHEST PORTABLE REASON: Shortness of breath ORDER NUMBER(s): [id number], ACCESSION NUMBER(s): [id number] CHEST RADIOGRAPH Indication: Shortness of breath Technique: Single frontal view of the chest was obtained COMPARISON: CHEST PORTABLE on DOS: 11/03/19 FINDINGS: Lines and Tubes: None Lungs: Clear Pleura: No effusion. No pneumothorax. Cardiomediastinal contours: Unremarkable Bones: Unremarkable IMPRESSION: No acute disease. Assessment/Plan Assessment/Plan Hyperglycemia due to diabetes mellitus Hyponatremia Dcnxh-ul-ocsikuh kidney injury Generalized weakness Plan 1. Admit to telemetry unit 2. Breathing treatment 3. Pain control management 4. Management of fluids and electrolytes 5. Consultation for hospitalist 6. Diagnostic tests chest x-ray 7. DVT prophylaxis-on aspirin 8. Repeat labs CBC, CMP in a.m. 9. Continue with current medical management 10. Treatment plan discussed with patient and RN. Patient verbalized understanding. Plan discussed with: Patient, Other My Orders Orders - QUE ZHANG DNP Procedure Category Date Status Time Aspirin Tablet PHA 03/31/24 In Process 10:00 Atorvastatin (Lipitor) PHA 03/30/24 In Process 22:00 Famotidine Injection PHA 03/31/24 In Process (Pepcid Injection) 10:00 Consistent DIET 03/31/24 Transmitted Carb(Ccho)Diabetes Breakfast Glucose Blood PHA 03/31/24 In Process (Accu-Chek Comfort 00:00 Insulin R (Human) PHA 03/31/24 In Process (Insulin R) 00:00 Dextrose 50% Syringe PHA 03/30/24 In Process 21:15 Allergies AAMIR 03/30/24 In Process 21:10 Code Status CODE 03/30/24 Transmitted 21:10 Sodium Chloride 0.9% PHA 03/30/24 In Process 21:15 Oxygen Per Hour RT 03/30/24 Transmitted 21:10 Hydrocodone-Acet PHA 03/30/24 In Process 5/325mg Tab ([place] 21:15 Ondansetron Hcl PHA 03/30/24 In Process (Zofran) 21:15 Docusate Sodium PHA 03/30/24 In Process Capsule (Colace 21:15 Complete Blood Count LAB 03/31/24 Verified 04:00 Comprehensive LAB 03/31/24 Verified Metabolic Panel 04:00 Condition: Serious AAMIR 03/30/24 In Process 21:10 Acetaminophen Tablet PHA 03/30/24 In Process (Tylenol Tablet) 21:15 Bedrest With Bathroom AAMIR 03/30/24 In Process Privileg 21:10 Sequential AAMIR 03/30/24 In Process Compression Device Hemoglobin A1c LAB 03/30/24 Logged 21:14 Problem List: (1) Hyperglycemia due to diabetes mellitus (2) Vuaeg-mv-ccdqbfm kidney injury (3) Hyponatremia (4) Generalized weakness Date of Service: Mar 30, 2024 Billing Provider: QUE ZHANG DNP Common Visit Codes: [id number] INP/OBS CARE (HIGH) QUE ZHANG DNP Mar 30, 2024 21:43
[2024-03-30] MEDS ORDERED: NITROGLYCERIN 0.4 MG SL TAB SL PRN (21:45)
[2024-03-30] MEDS ORDERED: MORPHINE SULFATE INJ 2 MG/ml SYRG IV PRN (21:45)
[2024-03-30 22:00] VITALS: PULSE 100; RESP 16; O2SAT 93
[2024-03-30] MEDS: ATORVASTATIN 20 MG TAB PO SCH (22:33)
[2024-03-30 22:42] LABS: COVID19 ANTIGEN SOFIA FIA NEGATIVE (NEGATIVE); Rapid Influenza A Negative (Negative); Rapid Influenza B Negative (Negative)
[2024-03-31] VITALS (9 sets, daily range): BP systolic 101–125; BP diastolic 63–75; PULSE 80–91; RESP 16–20; TEMP 97.8–98.3; O2SAT 94–99
[2024-03-31] MEDS: InsuLIN REG 1unit/0.01ml Soln (100units/ml) SC SCH
[2024-03-31] MEDS: HYDROcodone-ACET 5/325MG TAB PO PRN (00:21)
[2024-03-31] MEDS: ACCU-CHEK COMFORT CURVE STRIP VI SCH (00:27)
[2024-03-31 08:46] LABS: Basophils # (auto) 0 10 ^3/uL (0-0.2); Basophils % (auto) 0.3 % (0.0-2.0); Eosinophils # (auto) 0.2 10 ^3/uL (0-0.8); Eosinophils % (auto) 2.1 % (0.0-7.0); Lymphocytes % (auto) 21.1 % (10.0-50.0); Mean Corpuscular Hemoglobin 29.7 pg (28.0-32.0); Mean Corpuscular Hgb Conc. 33.3 g/dL (32.0-36.0); Monocytes # (auto) 0.7 10 ^3/uL (0-1.3); Monocytes % (auto) 6.9 % (0.0-12.0); Neutrophils # (auto) 6.6 10 ^3/uL (1.6-8.6); Neutrophils % (auto) 69.6 % (37.0-80.0); Platelet Count (auto) 268 10^3/uL (140-450); Red Blood Cells 4.39 10^6/uL (4.5-5.90); White Blood Cell 9.5 10^3/uL (4.4-10.8)
[2024-03-31] MEDS: ASPirin 81 mg TAB PO SCH (08:55)
[2024-03-31] MEDS: FAMOTIDINE (10MG/ML) 2ML VL IV SCH (08:55)
[2024-03-31 09:01] LABS: Alkaline Phosphatase 78 U/L (46-116); Anion Gap 5 (5-15); Aspartate Aminotransferase 33 U/L (13-40); BUN/Creatinine Ratio 16.8 (10.0-20.0); Blood Urea Nitrogen 20 mg/dL (9-23); Carbon Dioxide 28 mmol/L (20-31); Chloride 98 mmol/L (98-107); Potassium 4.8 mmol/L (3.5-5.1)
[2024-03-31 09:02] LABS: Albumin 3.6 g/dL (3.2-4.8); Bilirubin, Total 0.6 mg/dL (0.2-1.0)
[2024-03-31 09:22] LABS: Sodium 131 mmol/L (136-145)
[2024-03-31 09:23] LABS: Alanine Aminotransferase 46 U/L (7-40); Glucose 400 mg/dL (74-106)
[2024-03-31] MEDS: INSULIN LANTUS (GLARGINE) 1 /0.01ml (100units/ml) SC SCH (22:00)
--- NOTE | 2024-03-31 22:37 | DVHPN2 ---
Subjective The patient seen and examined at bedside. No complaint today. Reviewed: Care Plan, H&P, Labs, Medications, Previous Orders, Radiology Changes from previous H/P or p: No Changes Eyes: No Pain, No Vision change, No Conjunctivae inflammation, No Eyelid inflammation, No Other, No Redness ENT: No Ear pain, No Ear discharge, No Nose pain, No Nose discharge, No Nose congestion, No Mouth pain, No Mouth swelling, No Throat pain, No Throat swelling, No Other Cardiovascular: No Chest Pain, No Palpitations, No Orthopnea, No Paroxysmal Noc. Dyspnea, No Edema, No Lt Headedness, No Other Respiratory: No Cough, No Dry, No Shortness of breath, No SOB with excertion, No Wheezing, No Hemoptysis, No Pleuritic Pain, No Sputum, No Other Gastrointestinal: Nausea; No Vomiting, No Abdominal Pain, No Diarrhea, No Constipation, No Melena, No Hematochezia, No Other Genitourinary: No Dysuria, No Frequency, No Incontinence, No Hematuria, No Retention, No Other Musculoskeletal: No other, No neck pain, No shoulder pain, No arm pain, No back pain, No hand pain, No leg pain, No foot pain Skin: No Rash, No Lesions, No Jaundice, No Bruising, No Other Objective Vitals Vital Signs Date Time Temp Pulse Resp B/P (MAP) Pulse Ox O2 Delivery O2 Flow Rate FiO2 03/31/24 21:00 98.3 89 17 101/63 (76) 94 98.3 03/31/24 20:00 Room Air* 0 21 Intake/Output Intake and Output 03/31/24 07:00 Intake Total 1000 ml Output Total 0 ml Balance 1000 ml IV Total 1000 ml Output Urine Total 0 ml General Appearance: Alert, Cooperative, No acute distress HEENT: Atraumatic, PERRLA, EOMI, Mucous membr. moist/pink Neck: Supple Lungs: Clear to auscultation, Normal air movement Cardiovascular: Regular rate, Normal S1, Normal S2, No murmurs, Gallops, Rubs Abdomen: Normal bowel sounds, Soft, No tenderness Neuro: Cranial nerves 3-12 NL Psych/Mental Status: Mental status NL Medications Current Medications Medications Dose Ordered Sig/Favio Route Start Time Stop Time Status Last Admin Dose Admin Aspirin 81 mg DAILY PO 03/31/24 10:00 03/31/24 08:55 81 MG Atorvastatin Calcium 20 mg HS PO 03/30/24 22:00 Famotidine 20 mg DAILY IV 03/31/24 10:00 03/31/24 08:55 20 MG Diagnostic Test (Pha) 1 strip IQ4HR 03/31/24 00:00 03/31/24 20:04 1 STRIP Insulin Human Regular IQ4HR SC 03/31/24 00:00 03/31/24 15:39 8 UNITS Dextrose 50 ml UD PRN IV 03/30/24 21:15 Sodium Chloride 1,000 ml @ 120 mls/hr Q8H20M IV 03/30/24 21:15 03/31/24 13:55 120 MLS/HR Acetaminophen/ Hydrocodone Bitart 1 tab Q4HP PRN PO 03/30/24 21:15 03/31/24 15:06 1 TAB Ondansetron HCl 4 mg Q4HP PRN IV 03/30/24 21:15 Docusate Sodium 100 mg BIDPRN PRN PO 03/30/24 21:15 Acetaminophen 650 mg Q6HP PRN PO 03/30/24 21:15 Nitroglycerin 0.4 mg Q5MINP PRN SL 03/30/24 21:45 Morphine Sulfate 2 mg Q30M PRN IV 03/30/24 21:45 Insulin Glargine 20 units BID@0700,2200 SC 03/31/24 22:00 Laboratory Results Laboratory Tests 03/31/24 08:00 Chemistry Test 03/31/24 08:00 Albumin 3.6 g/dL (3.2-4.8) Calcium Level 9.0 mg/dL (8.7-10.4) Total Protein 7.0 g/dL (5.7-8.2) LFT Test 03/31/24 08:00 Alanine Aminotransferase (ALT) 46 U/L (7-40) H Alkaline Phosphatase 78 U/L (46-116) Aspartate Amino Transferase (AST) 33 U/L (13-40) Total Bilirubin 0.6 mg/dL (0.2-1.0) Labs and/or images reviewed: Labs reviewed by me Assessment/Plan Assessment/Plan Hyperglycemia due to diabetes mellitus Hyponatremia Ohbac-vh-lynbctn kidney injury Generalized weakness Continuing current management. We will monitor the hyponatremia. I will add Lantus 20 units subQ twice per day. Continuing sliding scale insulin. Continuing IV fluid. We will monitor kidney function. Plan discussed with: Patient My Orders Orders - KJ CANTU MD Procedure Category Date Status Time Insulin Lantus PHA 03/31/24 Logged (Glargine) (Lantus) 22:00 Date of Service: Mar 31, 2024 Billing Provider: KJ CANTU MD Common Visit Codes: [id number] INP/OBS CARE(HIGH) KJ CANTU MD Mar 31, 2024 22:37
[2024-04-01] VITALS (8 sets, daily range): BP systolic 115–134; BP diastolic 71–82; PULSE 78–89; RESP 16–20; TEMP 97.4–98.7; O2SAT 92–98
[2024-04-01 08:31] LABS: Hepatitis B Surface Antibody Negative (Negative)
[2024-04-01 11:56] LABS: Basophils # (auto) 0 10 ^3/uL (0-0.2); Basophils % (auto) 0.3 % (0.0-2.0); Eosinophils # (auto) 0.1 10 ^3/uL (0-0.8); Eosinophils % (auto) 1.3 % (0.0-7.0); Hematocrit 38.2 % (41.0-53.0); Hemoglobin 12.7 g/dL (13.5-17.5); Lymphocytes # (auto) 1.4 10 ^3/uL (0.4-5.4); Lymphocytes % (auto) 15.6 % (10.0-50.0); Mean Corpuscular Hemoglobin 29.6 pg (28.0-32.0); Mean Corpuscular Hgb Conc. 33.3 g/dL (32.0-36.0); Mean Corpuscular Volume 88.8 fL (80.0-100.0); Monocytes # (auto) 0.5 10 ^3/uL (0-1.3); Monocytes % (auto) 5.7 % (0.0-12.0); Neutrophils # (auto) 6.9 10 ^3/uL (1.6-8.6); Neutrophils % (auto) 77.1 % (37.0-80.0); Platelet Count (auto) 280 10^3/uL (140-450); Red Cell Distribution Width 13.1 % (11.8-14.3)
[2024-04-01 12:10] LABS: Anion Gap 5 (5-15); Carbon Dioxide 29 mmol/L (20-31); Potassium 4.4 mmol/L (3.5-5.1)
[2024-04-01 12:11] LABS: Calcium 9.2 mg/dL (8.7-10.4)
[2024-04-01 12:16] LABS: BUN/Creatinine Ratio 24.5 (10.0-20.0); Blood Urea Nitrogen 23 mg/dL (9-23)
[2024-04-01 12:23] LABS: Chloride 96 mmol/L (98-107); Glucose 375 mg/dL (74-106); Sodium 130 mmol/L (136-145)
[2024-04-01 13:08] LABS: Hepatitis C Antibody Positive (Negative)
[2024-04-01] MEDS: DOCUSATE SOD 100 MG CAP PO PRN (14:29)
[2024-04-01] MEDS: INSULIN LANTUS (GLARGINE) 1 /0.01ml (100units/ml) SC SCH (14:37)
[2024-04-01] MEDS: AZITHROMYCIN 500MG/ 250ML 250 ML IV ONE (15:21)
--- NOTE | 2024-04-01 18:45 | DVH ---
CHEST RADIOGRAPH Indication: sob Technique: Single frontal view of the chest was obtained COMPARISON: XY CHEST PORTABLE on DOS: 03/30/24, CHEST PORTABLE on DOS: 11/03/19 FINDINGS: Lines and Tubes: None Lungs: Diffuse increased interstitial prominence. Patchy opacities in the left lower lobe. Pleura: No effusion. No pneumothorax. Cardiomediastinal contours: Unremarkable Bones: Unremarkable IMPRESSION: Lower lung volumes. No other significant interval change.
[2024-04-01] MEDS: cefTRIAXone 1GM/50ML D5W 50 ML IV ONE (19:07)
[2024-04-02 05:00] VITALS: BP 113/69; PULSE 71; RESP 18; TEMP 97.6; O2SAT 100
--- NOTE | 2024-04-02 07:25 | DVHPN2 ---
Subjective The patient seen and examined at bedside. No complaint today. Reviewed: Care Plan, H&P, Labs, Medications, Previous Orders, Radiology Changes from previous H/P or p: No Changes Eyes: No Pain, No Vision change, No Conjunctivae inflammation, No Eyelid inflammation, No Other, No Redness ENT: No Ear pain, No Ear discharge, No Nose pain, No Nose discharge, No Nose congestion, No Mouth pain, No Mouth swelling, No Throat pain, No Throat swelling, No Other Cardiovascular: No Chest Pain, No Palpitations, No Orthopnea, No Paroxysmal Noc. Dyspnea, No Edema, No Lt Headedness, No Other Respiratory: No Cough, No Dry, No Shortness of breath, No SOB with excertion, No Wheezing, No Hemoptysis, No Pleuritic Pain, No Sputum, No Other Gastrointestinal: Nausea; No Vomiting, No Abdominal Pain, No Diarrhea, No Constipation, No Melena, No Hematochezia, No Other Genitourinary: No Dysuria, No Frequency, No Incontinence, No Hematuria, No Retention, No Other Musculoskeletal: No other, No neck pain, No shoulder pain, No arm pain, No back pain, No hand pain, No leg pain, No foot pain Skin: No Rash, No Lesions, No Jaundice, No Bruising, No Other Objective Vitals Vital Signs Date Time Temp Pulse Resp B/P (MAP) Pulse Ox O2 Delivery O2 Flow Rate FiO2 04/01/24 05:00 97.6 71 18 113/69 (84) 100 97.6 04/01/24 20:00 Room Air* 0 21 Intake/Output Intake and Output 04/02/24 07:00 Intake Total 955 ml Output Total 550 ml Balance 405 ml Intake Oral 955 ml Output Urine Total 550 ml # Voids 3 # Bowel Movements 1 General Appearance: Alert, Cooperative, No acute distress HEENT: Atraumatic, PERRLA, EOMI, Mucous membr. moist/pink Neck: Supple Lungs: Clear to auscultation, Normal air movement Cardiovascular: Regular rate, Normal S1, Normal S2, No murmurs, Gallops, Rubs Abdomen: Normal bowel sounds, Soft, No tenderness Neuro: Cranial nerves 3-12 NL Psych/Mental Status: Mental status NL Medications Current Medications Medications Dose Ordered Sig/Favio Route Start Time Stop Time Status Last Admin Dose Admin Aspirin 81 mg DAILY PO 03/31/24 10:00 04/01/24 10:04 81 MG Atorvastatin Calcium 20 mg HS PO 03/30/24 22:00 04/01/24 21:04 20 MG Famotidine 20 mg DAILY IV 03/31/24 10:00 04/01/24 10:04 20 MG Diagnostic Test (Pha) 1 strip IQ4HR 03/31/24 00:00 04/02/24 04:02 1 STRIP Insulin Human Regular IQ4HR SC 03/31/24 00:00 04/01/24 14:40 20 UNITS Dextrose 50 ml UD PRN IV 03/30/24 21:15 Sodium Chloride 1,000 ml @ 120 mls/hr Q8H20M IV 03/30/24 21:15 04/01/24 22:28 120 MLS/HR Acetaminophen/ Hydrocodone Bitart 1 tab Q4HP PRN PO 03/30/24 21:15 04/01/24 21:05 1 TAB Ondansetron HCl 4 mg Q4HP PRN IV 03/30/24 21:15 Docusate Sodium 100 mg BIDPRN PRN PO 03/30/24 21:15 04/01/24 14:29 100 MG Acetaminophen 650 mg Q6HP PRN PO 03/30/24 21:15 Nitroglycerin 0.4 mg Q5MINP PRN SL 03/30/24 21:45 Morphine Sulfate 2 mg Q30M PRN IV 03/30/24 21:45 Insulin Glargine 25 units BID@0700,2200 SC 04/01/24 11:45 04/02/24 06:08 25 UNITS Ceftriaxone Sodium 50 ml @ 100 mls/hr DAILY@09 IV 04/02/24 09:00 Azithromycin 250 ml @ 125 mls/hr DAILY IV 04/02/24 10:00 Laboratory Results Laboratory Tests 04/01/24 11:11 Chemistry Test 04/01/24 11:11 Calcium Level 9.2 mg/dL (8.7-10.4) Labs and/or images reviewed: Labs reviewed by me Assessment/Plan Assessment/Plan Hyperglycemia due to diabetes mellitus Hyponatremia Cvaso-gu-hrfdcpi kidney injury Generalized weakness Continuing current management. We will monitor the hyponatremia. I will increase Lantus 25 units subQ twice per day. Continuing sliding scale insulin. Continuing IV fluid. We will monitor kidney function. We will order a chest x-ray We will start patient on Rocephin 1 g IV q.day This medical document was created using an electronic medical record system with [employer] direct computerized dictation system. Although this document has been carefully reviewed, there may still be some phonetic and typographical errors. These areas are purely typographical due to imperfections of the software programs, and do not reflect any compromise in the patient's medical care. Plan discussed with: Patient My Orders Orders - KJ CANTU MD Procedure Category Date Status Time Insulin Lantus PHA 04/01/24 In Process (Glargine) (Lantus) 11:45 Ceftriaxone 1gm/50ml PHA 04/02/24 In Process D5w (Rocephin) 09:00 Azithromycin 500mg/ PHA 04/02/24 In Process 250ml (Zithromax 50 10:00 Chest Xray 1 View XY 04/01/24 Resulted 16:35 Date of Service: Apr 01, 2024 Billing Provider: KJ CANTU MD Common Visit Codes: [id number] INP/OBS CARE(HIGH) KJ CANTU MD Apr 02, 2024 07:25
[2024-04-02 08:00] VITALS: PULSE 77
[2024-04-02 09:00] VITALS: BP 128/81; PULSE 75; RESP 19; TEMP 97.8; O2SAT 94
[2024-04-02] MEDS: ACCU-CHEK COMFORT CURVE STRIP VI SCH (09:30)
[2024-04-02] MEDS: InsuLIN REG 1unit/0.01ml Soln (100units/ml) SC SCH (09:30)
[2024-04-02] MEDS: cefTRIAXone 1GM/50ML D5W 50 ML IV SCH (09:56)
[2024-04-02] MEDS: LORazepam 0.5 MG TAB PO PRN (09:57)
[2024-04-02] MEDS: AZITHROMYCIN 500MG/ 250ML 250 ML IV SCH (10:00)
--- NOTE | 2024-04-02 10:49 | DVHPN2 ---
Subjective The patient seen and examined at bedside. No complaint today. Reviewed: Care Plan, H&P, Labs, Medications, Previous Orders, Radiology Eyes: No Pain, No Vision change, No Conjunctivae inflammation, No Eyelid inflammation, No Other, No Redness ENT: No Ear pain, No Ear discharge, No Nose pain, No Nose discharge, No Nose congestion, No Mouth pain, No Mouth swelling, No Throat pain, No Throat swelling, No Other Cardiovascular: No Chest Pain, No Palpitations, No Orthopnea, No Paroxysmal Noc. Dyspnea, No Edema, No Lt Headedness, No Other Respiratory: No Cough, No Dry, No Shortness of breath, No SOB with excertion, No Wheezing, No Hemoptysis, No Pleuritic Pain, No Sputum, No Other Gastrointestinal: Nausea; No Vomiting, No Abdominal Pain, No Diarrhea, No Constipation, No Melena, No Hematochezia, No Other Genitourinary: No Dysuria, No Frequency, No Incontinence, No Hematuria, No Retention, No Other Musculoskeletal: No other, No neck pain, No shoulder pain, No arm pain, No back pain, No hand pain, No leg pain, No foot pain Skin: No Rash, No Lesions, No Jaundice, No Bruising, No Other Objective Vitals Vital Signs Date Time Temp Pulse Resp B/P (MAP) Pulse Ox O2 Delivery O2 Flow Rate FiO2 04/02/24 09:00 97.8 75 19 128/81 (97) 94 97.8 04/01/24 20:00 Room Air* 0 21 Intake/Output Intake and Output 04/02/24 07:00 Intake Total 955 ml Output Total 550 ml Balance 405 ml Intake Oral 955 ml Output Urine Total 550 ml # Voids 3 # Bowel Movements 1 General Appearance: Alert, Cooperative, No acute distress HEENT: Atraumatic, PERRLA, EOMI, Mucous membr. moist/pink Neck: Supple Lungs: Clear to auscultation, Normal air movement Cardiovascular: Regular rate, Normal S1, Normal S2, No murmurs, Gallops, Rubs Abdomen: Normal bowel sounds, Soft, No tenderness Neuro: Cranial nerves 3-12 NL Psych/Mental Status: Mental status NL Medications Current Medications Medications Dose Ordered Sig/Favio Route Start Time Stop Time Status Last Admin Dose Admin Aspirin 81 mg DAILY PO 03/31/24 10:00 04/02/24 09:57 81 MG Atorvastatin Calcium 20 mg HS PO 03/30/24 22:00 04/01/24 21:04 20 MG Famotidine 20 mg DAILY IV 03/31/24 10:00 04/02/24 09:56 20 MG Dextrose 50 ml UD PRN IV 03/30/24 21:15 Sodium Chloride 1,000 ml @ 120 mls/hr Q8H20M IV 03/30/24 21:15 04/01/24 22:28 120 MLS/HR Acetaminophen/ Hydrocodone Bitart 1 tab Q4HP PRN PO 03/30/24 21:15 04/01/24 21:05 1 TAB Ondansetron HCl 4 mg Q4HP PRN IV 03/30/24 21:15 Docusate Sodium 100 mg BIDPRN PRN PO 03/30/24 21:15 04/01/24 14:29 100 MG Acetaminophen 650 mg Q6HP PRN PO 03/30/24 21:15 Nitroglycerin 0.4 mg Q5MINP PRN SL 03/30/24 21:45 Morphine Sulfate 2 mg Q30M PRN IV 03/30/24 21:45 Insulin Glargine 25 units BID@0700,2200 SC 04/01/24 11:45 04/02/24 06:08 25 UNITS Ceftriaxone Sodium 50 ml @ 100 mls/hr DAILY@09 IV 04/02/24 09:00 04/02/24 09:56 100 MLS/HR Azithromycin 250 ml @ 125 mls/hr DAILY IV 04/02/24 10:00 Insulin Human Regular ACHS SC 04/02/24 09:30 Diagnostic Test (Pha) 1 strip ACHS 04/02/24 09:30 Lorazepam 1 mg Q4HP PRN PO 04/02/24 09:30 04/02/24 09:57 1 MG Laboratory Results Laboratory Tests 04/01/24 11:11 Chemistry Test 04/01/24 11:11 Calcium Level 9.2 mg/dL (8.7-10.4) Assessment/Plan Assessment/Plan Hyperglycemia due to diabetes mellitus Hyponatremia Qqvna-zz-aiqgcxx kidney injury Generalized weakness Continuing current management. We will monitor the hyponatremia. I will increase Lantus 25 units subQ twice per day. Continuing sliding scale insulin. Continuing IV fluid. We will monitor kidney function. We will order a chest x-ray We will start patient on Rocephin 1 g IV q.day This medical document was created using an electronic medical record system with [employer] direct computerized dictation system. Although this document has been carefully reviewed, there may still be some phonetic and typographical errors. These areas are purely typographical due to imperfections of the software programs, and do not reflect any compromise in the patient's medical care. My Orders Orders - KJ CANTU MD Procedure Category Date Status Time Insulin Lantus PHA 04/01/24 In Process (Glargine) (Lantus) 11:45 Ceftriaxone 1gm/50ml PHA 04/02/24 In Process D5w (Rocephin) 09:00 Azithromycin 500mg/ PHA 04/02/24 In Process 250ml (Zithromax 50 10:00 Chest Xray 1 View XY 04/01/24 Resulted 16:35 Insulin R (Human) PHA 04/02/24 In Process (Insulin R) 09:30 Glucose Blood PHA 04/02/24 In Process (Accu-Chek Comfort 09:30 Lorazepam Tablet PHA 04/02/24 In Process (Ativan Tablet) 09:30 KJ CANTU MD Apr 02, 2024 10:49
--- NOTE | 2024-04-02 11:48 | DVHDS2 ---
Discharge Summary Date of Admission Mar 30, 2024 at 21:42 Date of Discharge: Apr 02, 2024 Admitting Diagnosis Hyperglycemia due to diabetes mellitus Hyponatremia Pydxa-kc-vsbezfg kidney injury Generalized weakness Labs/Diagnostic Data: Laboratory Results Test 04/02/24 05:53 04/01/24 11:11 03/31/24 08:00 03/30/24 22:26 POC Glucose 141 mg/dl (70-106) White Blood Count 9.0 10^3/uL (4.4-10.8) Red Blood Count 4.30 10^6/uL (4.5-5.90) Hemoglobin 12.7 g/dL (13.5-17.5) Hematocrit 38.2 % (41.0-53.0) Mean Corpuscular Volume 88.8 fL (80.0-100.0) Mean Corpuscular Hemoglobin 29.6 pg (28.0-32.0) Mean Corpuscular Hemoglobin Concent 33.3 g/dL (32.0-36.0) Red Cell Distribution Width 13.1 % (11.8-14.3) Platelet Count 280 10^3/uL (140-450) Mean Platelet Volume 8.0 fL (6.9-10.8) Neutrophils (%) (Auto) 77.1 % (37.0-80.0) Lymphocytes (%) (Auto) 15.6 % (10.0-50.0) Monocytes (%) (Auto) 5.7 % (0.0-12.0) Eosinophils (%) (Auto) 1.3 % (0.0-7.0) Basophils (%) (Auto) 0.3 % (0.0-2.0) Neutrophils # (Auto) 6.9 10 ^3/uL (1.6-8.6) Lymphocytes # (Auto) 1.4 10 ^3/uL (0.4-5.4) Monocytes # (Auto) 0.5 10 ^3/uL (0-1.3) Eosinophils # (Auto) 0.1 10 ^3/uL (0-0.8) Basophils # (Auto) 0 10 ^3/uL (0-0.2) Nucleated Red Blood Cells 0.0 % Sodium Level 130 mmol/L (136-145) Potassium Level 4.4 mmol/L (3.5-5.1) Chloride Level 96 mmol/L (98-107) Carbon Dioxide Level 29 mmol/L (20-31) Anion Gap 5 (5-15) Blood Urea Nitrogen 23 mg/dL (9-23) Creatinine 0.94 mg/dL (0.700-1.30) Glomerular Filtration Rate Calc 92 mL/min (>90) BUN/Creatinine Ratio 24.5 (10.0-20.0) Serum Glucose 375 mg/dL (74-106) Calcium Level 9.2 mg/dL (8.7-10.4) Total Bilirubin 0.6 mg/dL (0.2-1.0) Aspartate Amino Transferase (AST) 33 U/L (13-40) Alanine Aminotransferase (ALT) 46 U/L (7-40) Alkaline Phosphatase 78 U/L (46-116) Total Protein 7.0 g/dL (5.7-8.2) Albumin 3.6 g/dL (3.2-4.8) Hepatitis B Surface Antibody Negative (Negative) Hepatitis C Antibody Positive (Negative) Hemoglobin A1c > 14.0 % A1C (<5.7) Test 03/30/24 21:45 03/30/24 18:56 03/30/24 17:50 03/30/24 17:28 Influenza Type A Antigen Negative (Negative) Influenza Type B Antigen Negative (Negative) SARS-CoV-2 Antigen (Rapid) Negative (NEGATIVE) Troponin I High Sensitivity < 3 ng/L (</=54) Lactic Acid Level 1.4 mmol/L (0.4-2.0) B-Type Natriuretic Peptide 14.34 pg/mL (0-100) Beta-Hydroxybutyric Acid 0.212 mmol/L (< 0.4) Blood Gas Specimen Type Arterial Blood Gas Sample Site Right radial Blood Gas Patient Temperature 37.0 Arterial Blood Date Drawn [id number] Arterial Blood pH 7.474 (7.350-7.450) Arterial Blood Partial Pressure CO2 37.5 mmHg (35.0-48.0) Arterial Blood Partial Pressure O2 70.1 mmHg (83.0-108.0) Arterial Blood HCO3 26.9 mmol/L (21.0-28.0) Arterial Blood Oxygen Saturation 93.6 % (94.0-98.0) Arterial Blood Base Excess 3.3 mmol/L (-2.0-3.0) Arterial Blood Oxyhemoglobin 91.8 % (94.0-98.0) Arterial Blood Carboxyhemoglobin 1.7 % (0.5-1.5) Arterial Blood Methemoglobin 0.2 % (0.0-1.5) Rodolfo Test Yes Blood Gas Total Hemoglobin 13.60 g/dL (13.5-17.5) Blood Gas Modality Room air Blood Gas Spontaneous Rate 22 FiO2 % 21.0 Other Laboratory Tests 04/01/24 11:11 Brief Hx & Hospital Course: This is a 63 years old male with past medical history of peptic ulcer disease, diabetes type 2, COPD came to emergency department because of high blood glucose. According to the patient he feel nausea, dizzy and tired. He went to his a medicine clinic and he blood glucose was checked. It was above 500. The patient was admitted for DKA. He was put on IV insulin and subsequently switched to Lantus and sliding scale insulin. The patient also found to have COPD. He was put on IV antibiotic with Rocephin and Zithromax. The patient was also on nebulizer. The patient blood glucose still elevated. It is improved however still in the range of 200-300. I will adjust his Lantus to a higher dose. However the patient grew inpatient and leave the hospital against medical advice. The patient verbally understands if leaving early and not treated appropriately he may come back to hospital with more severe problem however he still choose to leave against medical advice. Physical exam: HEENT: Normocephalic atraumatic pupils equal react to light and accommodation. Extraocular muscles intact, conjunctiva pink, oropharynx moist, no thrush, no exudate. Lymphatic: No lymphadenopathy Cardiovascular exam: S1, S2 was heard. No murmurs, rubs, gallops Lung: Clear on auscultation bilaterally, no wheeze, rale, rhonchi. GI: Abdominal soft, nondistended, nontenderness, positive bowel sounds. Extremity: No crepitus, cyanosis, edema. Pedal pulses present bilateral. Full range of motion. Skin: Normal turgor, no rash. Psych: Alert, oriented x3. Neurology: No focal deficits, cranial nerve II to XII grossly intact. This medical document was created using an electronic medical record system with [employer] direct computerized dictation system. Although this document has been carefully reviewed, there may still be some phonetic and typographical errors. These areas are purely typographical due to imperfections of the software programs, and do not reflect any compromise in the patient's medical care. Condition at Discharge: Guarded Final Diagnosis/Problems List Hyperglycemia due to diabetes mellitus Hyponatremia Ecefm-gr-gqswdgn kidney injury Generalized weakness Discharge Disposition: AMA Discharge Statement: "Patient was advised to return to the ER or call 911 if any headaches, dizziness, shortness of breath, chest pain, abdominal pain, bleeding, fevers, or worsening of medical condition. Patient was counseled about treatment plan, medications, possible side effects, patientverbalized understanding. All questions were answered to the best of my ability. This discharge took greater then 30 minutes in planning, reviewing documentation, counseling the patient, and discussing with other team members." ASSESSMENT ASSESSMENT Assessment Date of Service: Apr 02, 2024 Billing Provider: KJ CANTU MD Common Visit Codes: [id number] DISCH DAY >30min KJ CANTU MD Apr 02, 2024 11:48
== END 2024-04-02 11:20 | disposition left against medical advice (07) | DRG 420 ==
LOC: ER 16:45 → OVERFLOW 21:42 → TELE-WESTW 03-31 00:01
PROVIDERS: ADMIT Internal Medicine; ATTEND Internal Medicine
DX: E11.65 Type 2 diabetes mellitus with hyperglycemia (principal); N17.0 Acute kidney failure with tubular necrosis; E11.22 Type 2 diabetes mellitus with diabetic chronic kidney disease; Z20.822 Contact with and (suspected) exposure to COVID-19; N18.9 Chronic kidney disease, unspecified; F17.210 Nicotine dependence, cigarettes, uncomplicated; I12.9 Hypertensive chronic kidney disease with stage 1 through stage 4 chronic kidney disease, or unspecified chronic kidney disease; Z87.11 Personal history of peptic ulcer disease; Z79.4 Long term (current) use of insulin; Z91.199 Patient's noncompliance with other medical treatment and regimen due to unspecified reason
CPT/HCPCS: 36415; 36600; 71045; 80048; 80053; 82010; 82805; 82962; 83036; 83605; 83880; 84484; 85025; 86706; 86803; 87426; 87804; 96361; 96374; G0378; J1815; J3490